=== PATIENT | male | born 1965 | race Caucasian/White ===

== ENCOUNTER 2018-03-17 10:57 | Outpatient (CLI) | payer SELFPAY ==
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
== END 2018-03-17 11:00 ==
LOC: RAD 10:57
PROVIDERS: ATTEND Physician Assistant
DX: S99.921A Unspecified injury of right foot, initial encounter (principal); Y99.9 Unspecified external cause status
CPT/HCPCS: 73630

== ENCOUNTER 2019-01-25 16:08 | Outpatient (CLI) | payer OTHER ==
--- NOTE | 2019-01-25 17:38 | Diagnostic Imaging Report ---
THEODORE KINSEY [facility] [address] [facility] [address] Report Submission Date: Jan 25, 2019 5:23:40 PM CDT Patient Study Name: ASHLI RIVERA Date: Jan 25, 2019 4:18:21 PM CDT Modality Type: DX Gender: M Description: FOOT 3 VIEWS OR MORE : 63 Institution: [facility] Physician: THEODORE KINSEY Examination: Plain film right foot History: RT LATERAL FOOT PAIN. (Hx) Comparison exam: 17 Mar 2018 Findings: 3 views of the right foot demonstrates articular degenerative changes. 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 No acute fracture or dislocation. Inferior calcaneal spur. No soft tissue swelling. No joint effusion. Impression: Articular degenerative changes. 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
== END 2019-01-25 16:10 ==
LOC: RAD 16:08
PROVIDERS: ATTEND Orthopaedic Surgery Sports Medicine
DX: S92.351K Displaced fracture of fifth metatarsal bone, right foot, subsequent encounter for fracture with nonunion (principal)
CPT/HCPCS: 73630